=== PATIENT | female | born 1960 | race Two or more races ===

== ENCOUNTER 2022-11-23 16:09 | Inpatient (IN) | payer BC ==
[~2022-11-23] VITALS: Ht 157.5 cm; Wt 46.8 kg
[2022-11-23 16:53] LABS: Monocytes # (auto) 1.1 10 ^3/uL (0-1.3)
[2022-11-23 16:54] LABS: Basophils # (auto) 0 10 ^3/uL (0-0.2); Eosinophils # (auto) 0.1 10 ^3/uL (0-0.8)
[2022-11-23 16:55] LABS: Albumin 4.1 g/dL (3.4-5.0); Basophils % (auto) 0.8 % (0.0-2.0); Calcium 8.7 mg/dL (8.5-10.1); Eosinophils % (auto) 2.3 % (0.0-7.0); Hematocrit 52.8 % (36.0-46.0); Hemoglobin 18.9 g/dL (12.2-16.2); Lymphocytes # (auto) 2.4 10 ^3/uL (0.4-5.4); Lymphocytes % (auto) 38.2 % (10.0-50.0); Mean Corpuscular Hemoglobin 40.9 pg (28.0-32.0); Mean Corpuscular Hgb Conc. 35.8 g/dL (32.0-36.0); Mean Corpuscular Volume 114.3 fL (80.0-100.0); Monocytes % (auto) 16.8 % (0.0-12.0); Neutrophils # (auto) 2.6 10 ^3/uL (1.6-8.6); Neutrophils % (auto) 41.9 % (37.0-80.0); Red Blood Cells 4.62 10^6/uL (4.0-5.20); Red Cell Distribution Width 12.9 % (11.8-14.3); White Blood Cell 6.3 10^3/uL (4.4-10.8)
[2022-11-23 16:59] LABS: BUN/Creatinine Ratio 19.8 (10.0-20.0); Bilirubin, Total 0.8 mg/dL (0.2-1.0)
[2022-11-23] MEDS ORDERED: CYANOCOBALAMIN (B-12) 1000 MCG/1 ML VIAL IM ONE (20:15)
[2022-11-23] MEDS ORDERED: ALBUTEROL SULF 2.5 MG/0.5ML(0.5%) NEB SOLN NEB ONE (20:15)
[2022-11-23] MEDS ORDERED: DexAMETHasone SOD PHOS 10MG/1ML VIAL INJ IM ONE (20:15)
[2022-11-23] MEDS ORDERED: IPRATROPIUM BROM 0.5 MG/2.5ML INH SOL NEB ONE (20:15)
[2022-11-23 21:22] LABS: Urine Bacteria FEW /hpf (None Seen); Urine Blood TRACE /uL (Negative); Urine Hyaline Cast MOD /lpf (0 - 2); Urine Mucus FEW (None Seen); Urine Specific Gravity 1.027 (1.001-1.035); Urine WBC 5 /hpf (0 - 5)
[2022-11-24] MEDS ORDERED: ACETAMINOPHEN 325 MG TAB PO PRN (03:15)
[2022-11-24] MEDS ORDERED: DOCUSATE SOD 100 MG CAP PO PRN (03:15)
[2022-11-24] MEDS ORDERED: HYDROcodone-ACET 5/325MG TAB PO PRN (03:15)
[2022-11-24] MEDS ORDERED: ONDANSETRON HCL 4 MG/2 ML VIAL IV PRN (03:15)
[2022-11-24 03:35] VITALS: BP 108/73
[2022-11-24 04:05] LABS: Albumin 4.4 g/dL (3.4-5.0); Calcium 9.2 mg/dL (8.5-10.1); Potassium 3.9 mmol/L (3.5-5.1)
[2022-11-24 04:08] LABS: Bilirubin, Total 0.8 mg/dL (0.2-1.0); Total Protein 8.1 g/dL (6.4-8.2)
[2022-11-24 04:27] LABS: Basophils # (auto) 0 10 ^3/uL (0-0.2); Eosinophils # (auto) 0 10 ^3/uL (0-0.8); Monocytes # (auto) 0.1 10 ^3/uL (0-1.3); White Blood Cell 3.4 10^3/uL (4.4-10.8)
[2022-11-24 05:04] LABS: Basophils % (auto) 0.4 % (0.0-2.0); Hemoglobin 19.4 g/dL (12.2-16.2); Lymphocytes # (auto) 0.9 10 ^3/uL (0.4-5.4); Lymphocytes % (auto) 25.9 % (10.0-50.0); Mean Corpuscular Hemoglobin 40.8 pg (28.0-32.0); Mean Corpuscular Hgb Conc. 35.9 g/dL (32.0-36.0); Mean Corpuscular Volume 113.8 fL (80.0-100.0); Monocytes % (auto) 4.1 % (0.0-12.0); Neutrophils # (auto) 2.4 10 ^3/uL (1.6-8.6); Neutrophils % (auto) 69.6 % (37.0-80.0); Nucleated Red Blood Cells % 0.3 %; Red Blood Cells 4.75 10^6/uL (4.0-5.20); Red Cell Distribution Width 12.6 % (11.8-14.3)
[2022-11-24] MEDS: SODIUM CHLOR 0.9% PF (SALINE LOCK) 10ML VIAL/SYR IV SCH ×3 (06:08→23:25)
[2022-11-24] MEDS ORDERED: NITROGLYCERIN 0.4 MG SL TAB SL PRN (06:30)
[2022-11-24] MEDS ORDERED: MORPHINE SULFATE INJ 2 MG/ml SYRG IV PRN (06:30)
[2022-11-24] MEDS: AZITHROMYCIN 250 MG TAB PO SCH (09:59)
[2022-11-24] MEDS: ASPirin 81 mg TAB PO SCH (09:59)
[2022-11-24] MEDS: DexAMETHasone SOD PHOS 10MG/1ML VIAL INJ IV SCH (09:59)
[2022-11-24] MEDS: FAMOTIDINE (10MG/ML) 2ML VL IV SCH ×2 (09:59→23:24)
[2022-11-24] MEDS ORDERED: METO25TA93 PO (10:11)
[2022-11-24] MEDS ORDERED: ALBU0.084 NEB (10:11)
[2022-11-24] MEDS ORDERED: BUDE1AER5 IN (10:11)
[2022-11-24] MEDS: METOPROLOL SUCCINATE XL 50 MG TAB PO SCH (12:00)
[2022-11-24] MEDS: IPRATROPIUM BROM 0.5 MG/2.5ML INH SOL NEB PRN (17:49)
[2022-11-24] MEDS: ALBUTEROL SULF 2.5 MG/0.5ML(0.5%) NEB SOLN NEB PRN (17:49)
[2022-11-24 22:29] VITALS: BP 122/79
[2022-11-24] MEDS ORDERED: PNEUMOCOCCAL VACC POLYS 25 MCG/0.5 ML VIAL IM ONE (23:15)
[2022-11-24] MEDS ORDERED: CYA100I IM (23:48)
[2022-11-25 05:00] VITALS: BP 141/81
[2022-11-25] MEDS: SODIUM CHLOR 0.9% PF (SALINE LOCK) 10ML VIAL/SYR IV SCH ×3 (05:48→21:27)
[2022-11-25 06:11] LABS: Albumin 3.5 g/dL (3.4-5.0); Calcium 8.6 mg/dL (8.5-10.1); Potassium 4.3 mmol/L (3.5-5.1)
[2022-11-25 06:15] LABS: BUN/Creatinine Ratio 26.1 (10.0-20.0); Bilirubin, Total 0.7 mg/dL (0.2-1.0); Total Protein 6.2 g/dL (6.4-8.2)
[2022-11-25 06:40] LABS: Basophils # (auto) 0 10 ^3/uL (0-0.2); Eosinophils # (auto) 0 10 ^3/uL (0-0.8)
[2022-11-25 06:41] LABS: Basophils % (auto) 0.1 % (0.0-2.0); Hematocrit 46.2 % (36.0-46.0); Hemoglobin 16.4 g/dL (12.2-16.2); Lymphocytes # (auto) 1.8 10 ^3/uL (0.4-5.4); Lymphocytes % (auto) 24.4 % (10.0-50.0); Mean Corpuscular Hemoglobin 40.5 pg (28.0-32.0); Mean Corpuscular Hgb Conc. 35.6 g/dL (32.0-36.0); Mean Corpuscular Volume 113.6 fL (80.0-100.0); Monocytes % (auto) 13.6 % (0.0-12.0); Neutrophils # (auto) 4.4 10 ^3/uL (1.6-8.6); Neutrophils % (auto) 61.9 % (37.0-80.0); Nucleated Red Blood Cells % 0.2 %; Red Blood Cells 4.06 10^6/uL (4.0-5.20); Red Cell Distribution Width 12.4 % (11.8-14.3); White Blood Cell 7.2 10^3/uL (4.4-10.8)
[2022-11-25 09:00] VITALS: BP 107/74
[2022-11-25] MEDS: DexAMETHasone SOD PHOS 10MG/1ML VIAL INJ IV SCH (09:36)
[2022-11-25] MEDS: FAMOTIDINE (10MG/ML) 2ML VL IV SCH ×2 (09:37→21:26)
[2022-11-25] MEDS: AZITHROMYCIN 250 MG TAB PO SCH (09:37)
[2022-11-25] MEDS: METOPROLOL SUCCINATE XL 50 MG TAB PO SCH (09:38)
[2022-11-25] MEDS: ASPirin 81 mg TAB PO SCH (09:41)
[2022-11-25] MEDS: IPRATROPIUM BROM 0.5 MG/2.5ML INH SOL NEB PRN (10:07)
[2022-11-25] MEDS: ALBUTEROL SULF 2.5 MG/0.5ML(0.5%) NEB SOLN NEB PRN (10:07)
[2022-11-25 13:17] VITALS: BP 107/69
[2022-11-25] MEDS ORDERED: predniSONE 20 MG TAB PO ONE (13:45)
[2022-11-25 15:28] LABS: Ferritin 205.5 ng/mL (10-322)
[2022-11-25 17:00] VITALS: BP 107/65
[2022-11-25 22:00] VITALS: BP 94/61
[2022-11-26] VITALS (7 sets, daily range): BP systolic 109–143; BP diastolic 64–86
[2022-11-26] MEDS: SODIUM CHLOR 0.9% PF (SALINE LOCK) 10ML VIAL/SYR IV SCH ×3 (06:07→22:00)
[2022-11-26] MEDS ORDERED: REGADENOSON 0.4 MG/5 ML SYRG IV ONE ×2 (08:06→08:15)
[2022-11-26] MEDS: ASPirin 81 mg TAB PO SCH (09:21)
[2022-11-26] MEDS: AZITHROMYCIN 250 MG TAB PO SCH (09:21)
[2022-11-26] MEDS: DexAMETHasone SOD PHOS 10MG/1ML VIAL INJ IV SCH (09:21)
[2022-11-26] MEDS: FAMOTIDINE (10MG/ML) 2ML VL IV SCH (09:21)
[2022-11-26] MEDS: METOPROLOL SUCCINATE XL 50 MG TAB PO SCH (10:38)
[2022-11-27 05:00] VITALS: BP 113/73
[2022-11-27] MEDS: SODIUM CHLOR 0.9% PF (SALINE LOCK) 10ML VIAL/SYR IV SCH (06:19)
[2022-11-27 09:00] VITALS: BP 112/79
[2022-11-27] MEDS: DexAMETHasone SOD PHOS 10MG/1ML VIAL INJ IV SCH (09:18)
[2022-11-27] MEDS: ASPirin 81 mg TAB PO SCH (09:18)
[2022-11-27] MEDS: ALBUTEROL SULF 2.5 MG/0.5ML(0.5%) NEB SOLN NEB PRN (09:22)
[2022-11-27] MEDS: IPRATROPIUM BROM 0.5 MG/2.5ML INH SOL NEB PRN (09:22)
[2022-11-27] MEDS ORDERED: BUDE1AER4 IN (10:09)
[2022-11-27] MEDS ORDERED: ASPI-325 PO (10:09)
[2022-11-27] MEDS ORDERED: AZIT-43 PO (10:09)
[2022-11-27] MEDS ORDERED: METH4PAK PO (10:10)
== END 2022-11-27 12:37 | disposition home or self-care (01) | DRG 189 ==
LOC: ER 16:09 → TELE 11-24 06:23 → TELE-WESTW 11-24 22:10
PROVIDERS: ADMIT Nurse Practitioner Family; ATTEND Internal Medicine
DX: J96.01 Acute respiratory failure with hypoxia (principal); I20.0 Unstable angina; D75.1 Secondary polycythemia; I10 Essential (primary) hypertension; J43.9 Emphysema, unspecified; Z80.8 Family history of malignant neoplasm of other organs or systems; Z82.49 Family history of ischemic heart disease and other diseases of the circulatory system; Z82.5 Family history of asthma and other chronic lower respiratory diseases; Z85.850 Personal history of malignant neoplasm of thyroid; Z88.0 Allergy status to penicillin; Z72.0 Tobacco use
CPT/HCPCS: 36415; 71045; 71250; 76604; 78452; 80053; 81001; 82607; 82728; 83540; 83550; 83615; 84484; 85025; 85379; 93005; 93017; 93306; 94640; 96372; G0378; J1100; J3490